=== PATIENT | male | born 1935 | race Caucasian/White ===

== ENCOUNTER → 2017-10-29 | Outpatient (REF) | payer OTHER ==
[2017-10-29 15:51] LABS: BASO # 0.1 10^3/uL (0.0-0.2); EOS # 0.3 10^3/uL (0.0-0.50); EOS % 4.3 % (0.0-3.0); HEMATOCRIT 45.6 % (42.0-52.0); HEMOGLOBIN 15.5 g/dl (13.5-17.5); IMMATURE GRANULOCYTE % 0.2 % (0-3.0); LYMPH # 1.9 10^3/uL (1.5-4.5); LYMPH % 30.8 % (24.0-44.0); MEAN CORPUSCULAR HEMOGLOBIN 31.1 pg (27.0-33.0); MEAN CORPUSCULAR VOLUME 91.4 fl (80.0-96.0); MONO # 0.4 10^3/uL (0.0-0.8); MONO % 6.4 % (0.0-5.0); NEUTROPHILS # 3.6 10^3/uL (1.8-7.7); NEUTROPHILS % 57.3 % (36.0-66.0); PLATELET COUNT, AUTOMATED 234 10^3/uL (150-450); RED BLOOD COUNT 4.99 10^6/uL (4.30-6.10); RED CELL DISTRIBUTION WIDTH 12.4 % (11.5-14.5); WHITE BLOOD COUNT 6.3 10^3/uL (4.0-10.0)
[2017-10-29 16:09] LABS: ALBUMIN 3.5 GM/DL (3.2-5.2); ALBUMIN/GLOBULIN RATIO 1.03 (1.00-1.93); ALKALINE PHOSPHATASE 70 U/L (45-117); ALT/SGPT 28 U/L (12-78); ANION GAP 8 MEQ/L (8-16); AST/SGOT 18 U/L (7-37); BILIRUBIN,TOTAL 0.6 MG/DL (0.2-1.0); BLOOD UREA NITROGEN 12 MG/DL (7-18); CALCIUM LEVEL 9.3 MG/DL (8.8-10.2); CARBON DIOXIDE LEVEL 26 MEQ/L (21-32); CHLORIDE LEVEL 109 MEQ/L (98-107); CREATININE FOR GFR 1.07 MG/DL (0.70-1.30); GLOMERULAR FILTRATION RATE > 60.0 (>35); GLUCOSE, FASTING 101 MG/DL (70-100); POTASSIUM SERUM 4.3 MEQ/L (3.5-5.1); RHEUMATOID FACTOR QUANT < 10.0 IU/ML (<15.0); SODIUM LEVEL 143 MEQ/L (136-145); TOTAL PROTEIN 6.9 GM/DL (6.4-8.2)
[2017-10-29 16:46] LABS: ERYTHROCYTE SEDIMENTATION RATE 7 mm/hr (0-20)
[2017-10-29 20:46] LABS: VITAMIN B12 LEVEL 376 PG/ML
[2017-10-29 20:47] LABS: FOLATE > 24.0 NG/ML
[2017-11-04 14:22] LABS: ANTINUCLEAR ANTIBODIES DIRECT Negative (Negative); VITAMIN B1 LEVEL WHOLE BLOOD 185.9 nmol/L (66.5-200.0); VITAMIN B6,PYRIDOXAL PHOSPHATE 32.8 ug/L (5.3-46.7); VITAMIN E(ALPHA TOCOPHEROL) 17.2 mg/L (9.0-29.0); VITAMIN E(GAMMA TOCOPHEROL) 0.3 mg/L (0.5-4.9)
== END ==
LOC: M LABNEURO 10:53
DX: R42 Dizziness and giddiness (principal)
CPT/HCPCS: 82746

== ENCOUNTER 2023-10-21 22:25 | Inpatient (IN) | payer MEDICARE ==
[~2023-10-21] VITALS: Ht 172.7 cm; Wt 82.4 kg
[~2023-10-21 22:25] MED LIST: BENI20TA11 PO; CELE20TA PO; FISHCAP PO; GLUC500T3 PO; HYDR25TA6 PO; KEPP1TAB PO; LESC80TA PO; LIDO5DIS TD; NEXI1CAP3 PO; TETR500C PO
[2023-10-22] VITALS (51 sets, daily range): BP systolic 95–129; BP diastolic 52–71; TEMP 96.2–98.7; O2SAT 92–100
[2023-10-22 00:24] LABS: BASO % 0.2 % (0.0-1.0); HEMATOCRIT 38.8 % (42.0-52.0); HEMOGLOBIN 12.7 g/dl (13.5-17.5); LYMPH # 0.6 10^3/uL (1.5-5.0); LYMPH % 4.7 % (24.0-44.0); MEAN CORPUSCULAR HEMOGLOBIN 29.3 pg (27.0-33.0); MEAN CORPUSCULAR HGB CONC 32.7 g/dl (32.0-36.5); MEAN CORPUSCULAR VOLUME 89.4 fl (80.0-96.0); MONO # 0.6 10^3/uL (0.0-0.8); NEUTROPHILS # 11.2 10^3/uL (1.5-8.5); NEUTROPHILS % 89.5 % (36.0-66.0); PLATELET COUNT, AUTOMATED 377 10^3/uL (150-450); RED BLOOD COUNT 4.34 10^6/uL (4.30-6.10); WHITE BLOOD COUNT 12.5 10^3/uL (4.0-10.0)
[2023-10-22 00:50] LABS: BLOOD UREA NITROGEN 22 MG/DL (9-23); CALCIUM LEVEL 9.3 MG/DL (8.3-10.6); CARBON DIOXIDE LEVEL 28 MMOL/L (20-31); CHLORIDE LEVEL 103 MMOL/L (98-107); CK-MB VALUE MASS 1.5 NG/ML (<3.6); CREATININE FOR GFR 1.08 MG/DL (0.70-1.30); GLOMERULAR FILTRATION RATE > 60.0 (>35); GLUCOSE, FASTING 144 MG/DL (74-106); POTASSIUM SERUM 4.7 MMOL/L (3.5-5.1); SODIUM LEVEL 134 MMOL/L (136-145)
[2023-10-22] MEDS ORDERED: ISOVUE-370 76% 100ML VIAL As Ordered ONE (00:58)
[2023-10-22 01:12] LABS: CPK CREATINE PHOSPHOKINASE 26 U/L (46-171); MB/CK RELATIVE INDEX 5.76 (< OR =4)
[2023-10-22] MEDS: IPRATROPIUM 0.5MG/ALBUTEROL 2.5MG INH SOL UD 3ML (DUONEB) NEB SCH ×2 (02:08→08:29)
[2023-10-22] MEDS: methylPREDNISolone 125MG 2ML VIAL IV ONE (02:08)
[2023-10-22 02:35] LABS: CK-MB VALUE MASS 1.6 NG/ML (<3.6); MB/CK RELATIVE INDEX 6.66 (< OR =4)
[2023-10-22 03:44] LABS: ETHYL ALCOHOL (ETHANOL) 0.004 % (0.000-0.010)
[2023-10-22 03:46] LABS: ALBUMIN 2.8 G/DL (3.2-5.2); ALKALINE PHOSPHATASE 69 U/L (46-116); ALT/SGPT 11 U/L (7.0-40); AST/SGOT 10 U/L (<34); BILIRUBIN,DIRECT 0.2 MG/DL (<0.4); BILIRUBIN,TOTAL 0.4 MG/DL (0.3-1.2); TOTAL PROTEIN 6.2 G/DL (5.7-8.2)
[2023-10-22] MEDS ORDERED: MAALOX 30 ML SUSP *UDC PO PRN (04:00)
[2023-10-22] MEDS ORDERED: MOM 30ML SUSPENSION UDC PO PRN (04:00)
[2023-10-22] MEDS ORDERED: ACETAMINOPHEN TAB 650MG DOSE (2X325MG) PO PRN (04:00)
[2023-10-22] MEDS ORDERED: LEVALBUTEROL 1.25MG 0.5ML CONCENTRATE NEB INH PRN (04:00)
[2023-10-22 04:44] LABS: THYROXINE (T4) 5.5 UG/DL (4.5-10.9)
[2023-10-22 04:45] LABS: THYROID STIMULATING HORMONE 0.609 uIU/ML (0.55-4.78)
[2023-10-22 04:49] LABS: PROCALCITONIN 0.16 ng/ml
[2023-10-22 04:50] LABS: VENOUS BASE EXCESS -5.4 (-2.0-2.0); VENOUS HCO3 18.9 MMOL/L (23.0-27.0); VENOUS PARTIAL PRESSURE O2 108.1 mmHg (30.0-50.0); VENOUS PH 7.375 UNITS (7.330-7.430); VENOUS STANDARD HCO3 20.1 MMOL/L; VENOUS TOTAL CO2 19.9 MMOL/L (24.0-28.0)
[2023-10-22 05:08] LABS: INR 1.34; PARTIAL THROMBOPLASTIN TIME 33.1 SECONDS (24.8-34.2); PROTHROMBIN TIME 16.1 SECONDS (12.5-14.5)
[2023-10-22] MEDS ORDERED: ALBU8.5H INH (06:36)
[2023-10-22] MEDS ORDERED: SERT50TA29 PO (06:36)
[2023-10-22] MEDS ORDERED: BRIV50TA PO (06:36)
[2023-10-22] MEDS ORDERED: MEMA1TAB3 PO (06:36)
[2023-10-22] MEDS ORDERED: MED REC IN PROGRESS XX SCH (06:40)
[2023-10-22] MEDS ORDERED: **NOTE PATIENT COMMENT** MISC XX SCH (07:55)
[2023-10-22] MEDS ORDERED: BRIVIACT 50 MG PO SCH (09:00)
[2023-10-22] MEDS ORDERED: CETI-24 PO (09:27)
[2023-10-22] MEDS ORDERED: MEMA1PAK PO (09:27)
[2023-10-22] MEDS ORDERED: EQ M1TAB4 PO (09:27)
[2023-10-22] MEDS ORDERED: HOME MED LIST COMPLETE! XX SCH (09:30)
[2023-10-22] MEDS: PHYTONADIONE 5 MG TAB PO ONE (11:14)
[2023-10-22] MEDS: SERTRALINE HCL 50 MG TAB PO SCH (11:15)
[2023-10-22] MEDS: MEMANTINE 5MG TABLET (NAMENDA) PO SCH (11:15)
[2023-10-22] MEDS: DOCUSATE SODIUM 100MG CAPSULE PO SCH (11:15)
[2023-10-22] MEDS: D5W/0.9% SODIUM CHLORIDE 1,000 ML IV SCH (11:44)
[2023-10-22] MEDS: LIDOCAINE 1% MDV 20ML VIAL SC STA (12:37)
[2023-10-22] MEDS: MIDAZOLAM INJ 2MG/2ML VIAL IV STA (12:37)
[2023-10-22] MEDS: flumazeniL 0.5MG/5ML VIAL IV STA (12:54)
[2023-10-22] MEDS: PHENYLEPHRINE HCL INJ 50 MG in D5W 495 ML IV SCH (12:54)
[2023-10-22] MEDS ORDERED: PERCOCET 5MG/325MG TAB PO PRN (14:10)
[2023-10-22] MEDS ORDERED: BISACODYL 10MG SUPP PR PRN (14:10)
[2023-10-22] MEDS ORDERED: ONDANSETRON 4MG 2ML VIAL IV PRN (14:10)
[2023-10-22] MEDS: UNRESOLVED PATIENT OWN MED ORDER XX SCH (14:33)
[2023-10-22] MEDS: methylPREDNISolone 125MG 2ML VIAL IV SCH (14:39)
[2023-10-22] MEDS: KETOROLAC 30 MG/ML 1ML VIAL IV SCH (14:40)
[2023-10-22 14:52] LABS: PH BODY FLUID > 7.800 UNITS (NOT ESTABLISHED); SOURCE, BODY FLUID pH PLEURAL
[2023-10-22 15:06] LABS: SOURCE, BODY FLUID ALBUMIN PLEURAL
[2023-10-22 15:11] LABS: SOURCE, BODY FLUID GLUCOSE PLEURAL
[2023-10-22 15:12] LABS: LDH, BODY FLUID 339 U/L (NOT ESTABLISHED); SOURCE, BODY FLUID LDH PLEURAL
[2023-10-22 15:13] LABS: AMYLASE, BODY FLUID < 20 U/L (NOT ESTABLISHED); CHOLESTEROL, BODY FLUID 126 MG/DL (NOT ESTABLISHED); SOURCE, BODY FLUID AMYLASE PLEURAL; SOURCE, BODY FLUID CHOL PLEURAL; SOURCE, BODY FLUID TRIG PLEURAL; TRIGLYCERIDE, BODY FLUID 68 MG/DL (NOT ESTABLISHED)
[2023-10-22 15:15] LABS: APPEARANCE, BODY FLUID TURBID (CLEAR); PLEURAL FL COLOR RED (COLORLESS); SOURCE, BODY FLUID PLEURAL
[2023-10-22 15:28] LABS: SOURCE, BODY FLUID TOT PROTEIN PLEURAL; TOTAL PROTEIN, BODY FLUID 5.2 G/DL (NOT ESTABLISHED)
[2023-10-22 16:45] LABS: RHEUMATOID FACTOR QUANT 11.3 IU/ML (<14)
[2023-10-23] VITALS (9 sets, daily range): BP systolic 94–115; BP diastolic 51–63; TEMP 97.2–98.2; O2SAT 93–99
[2023-10-23 04:41] LABS: BASO % 0.1 % (0.0-1.0); HEMATOCRIT 34.1 % (42.0-52.0); HEMOGLOBIN 11.4 g/dl (13.5-17.5); LYMPH # 0.5 10^3/uL (1.5-5.0); LYMPH % 2.8 % (24.0-44.0); MEAN CORPUSCULAR HEMOGLOBIN 29.4 pg (27.0-33.0); MEAN CORPUSCULAR HGB CONC 33.4 g/dl (32.0-36.5); MEAN CORPUSCULAR VOLUME 87.9 fl (80.0-96.0); MONO # 0.4 10^3/uL (0.0-0.8); NEUTROPHILS # 18.1 10^3/uL (1.5-8.5); NEUTROPHILS % 94.4 % (36.0-66.0); PLATELET COUNT, AUTOMATED 348 10^3/uL (150-450); RED BLOOD COUNT 3.88 10^6/uL (4.30-6.10); WHITE BLOOD COUNT 19.2 10^3/uL (4.0-10.0)
[2023-10-23 05:15] LABS: ALBUMIN 2.4 G/DL (3.2-5.2); ALKALINE PHOSPHATASE 59 U/L (46-116); ALT/SGPT < 9 U/L (7.0-40); AST/SGOT < 8 U/L (<34); BILIRUBIN,TOTAL 0.2 MG/DL (0.3-1.2); BLOOD UREA NITROGEN 28 MG/DL (9-23); CARBON DIOXIDE LEVEL 27 MMOL/L (20-31); CHLORIDE LEVEL 107 MMOL/L (98-107); CREATININE FOR GFR 0.96 MG/DL (0.70-1.30); GLOMERULAR FILTRATION RATE > 60.0 (>35); GLUCOSE, FASTING 182 MG/DL (74-106); MAGNESIUM LEVEL 1.9 MG/DL (1.8-2.4); POTASSIUM SERUM 4.4 MMOL/L (3.5-5.1); SODIUM LEVEL 138 MMOL/L (136-145); TOTAL PROTEIN 5.5 G/DL (5.7-8.2)
[2023-10-23] MEDS ORDERED: LR 1,000 ML IV SCH (07:25)
[2023-10-23] MEDS: predniSONE 20 MG TAB PO SCH (08:54)
[2023-10-23] MEDS: PANTOPRAZOLE 40MG TAB (PROTONIX) PO SCH (08:54)
[2023-10-23 10:23] LABS: INR 1.13; PROTHROMBIN TIME 14.2 SECONDS (12.5-14.5)
[2023-10-24] VITALS (9 sets, daily range): BP systolic 98–131; BP diastolic 57–73; TEMP 97.7–98.4; O2SAT 86–100
[2023-10-24 04:31] LABS: BASO % 0.1 % (0.0-1.0); HEMATOCRIT 34.4 % (42.0-52.0); HEMOGLOBIN 11.5 g/dl (13.5-17.5); LYMPH # 0.8 10^3/uL (1.5-5.0); LYMPH % 4.8 % (24.0-44.0); MEAN CORPUSCULAR HEMOGLOBIN 29.6 pg (27.0-33.0); MEAN CORPUSCULAR HGB CONC 33.4 g/dl (32.0-36.5); MEAN CORPUSCULAR VOLUME 88.7 fl (80.0-96.0); MONO # 0.7 10^3/uL (0.0-0.8); MONO % 4.3 % (2.0-8.0); NEUTROPHILS # 14.9 10^3/uL (1.5-8.5); PLATELET COUNT, AUTOMATED 351 10^3/uL (150-450); RED BLOOD COUNT 3.88 10^6/uL (4.30-6.10); WHITE BLOOD COUNT 16.5 10^3/uL (4.0-10.0)
[2023-10-24 04:55] LABS: BLOOD UREA NITROGEN 38 MG/DL (9-23); CALCIUM LEVEL 9.3 MG/DL (8.3-10.6); CARBON DIOXIDE LEVEL 26 MMOL/L (20-31); CHLORIDE LEVEL 109 MMOL/L (98-107); CREATININE FOR GFR 1.04 MG/DL (0.70-1.30); GLOMERULAR FILTRATION RATE > 60.0 (>35); GLUCOSE, FASTING 148 MG/DL (74-106); POTASSIUM SERUM 4.5 MMOL/L (3.5-5.1); SODIUM LEVEL 141 MMOL/L (136-145)
[2023-10-24 04:57] LABS: PROTEIN, TOTAL SO 5.7 g/dL (6.1-8.1)
[2023-10-24 10:47] LABS: FREE KAPPA LIGHT CHAINS SERUM 43.2 mg/L (3.3-19.4); FREE LAMBDA LIGHT CHAINS SERUM 28.3 mg/L (5.7-26.3); KAPPA/LAMBDA RATIO SERUM 1.53 (0.26-1.65)
[2023-10-24 17:07] LABS: ANA PATTERN Nuclear, Homogeneous (NEGATIVE); ANA SCREEN, IFA POSITIVE (NEGATIVE)
[2023-10-24] MEDS: COLCHICINE 0.6 MG TABLET PO SCH (20:47)
[2023-10-24] MEDS: PERCOCET 5MG/325MG TAB PO PRN (20:49)
[2023-10-25] VITALS (8 sets, daily range): BP systolic 122–131; BP diastolic 63–67; TEMP 97.5–98.2; O2SAT 81–100
[2023-10-25 04:32] LABS: HEMATOCRIT 39.2 % (42.0-52.0); HEMOGLOBIN 12.8 g/dl (13.5-17.5); MEAN CORPUSCULAR HEMOGLOBIN 29.4 pg (27.0-33.0); MEAN CORPUSCULAR HGB CONC 32.7 g/dl (32.0-36.5); MEAN CORPUSCULAR VOLUME 90.1 fl (80.0-96.0); PLATELET COUNT, AUTOMATED 425 10^3/uL (150-450); RED BLOOD COUNT 4.35 10^6/uL (4.30-6.10); WHITE BLOOD COUNT 13.8 10^3/uL (4.0-10.0)
[2023-10-25 04:33] LABS: BASO % 0.1 % (0.0-1.0); HEMATOCRIT 39.4 % (42.0-52.0); HEMOGLOBIN 12.7 g/dl (13.5-17.5); LYMPH # 1.3 10^3/uL (1.5-5.0); LYMPH % 9.2 % (24.0-44.0); MEAN CORPUSCULAR HGB CONC 32.2 g/dl (32.0-36.5); MONO # 0.7 10^3/uL (0.0-0.8); MONO % 5.1 % (2.0-8.0); NEUTROPHILS # 11.7 10^3/uL (1.5-8.5); NEUTROPHILS % 84.8 % (36.0-66.0); PLATELET COUNT, AUTOMATED 439 10^3/uL (150-450); RED BLOOD COUNT 4.38 10^6/uL (4.30-6.10); WHITE BLOOD COUNT 13.8 10^3/uL (4.0-10.0)
[2023-10-25 04:49] LABS: BLOOD UREA NITROGEN 38 MG/DL (9-23); CALCIUM LEVEL 9.6 MG/DL (8.3-10.6); CARBON DIOXIDE LEVEL 26 MMOL/L (20-31); CHLORIDE LEVEL 110 MMOL/L (98-107); CREATININE FOR GFR 0.85 MG/DL (0.70-1.30); GLOMERULAR FILTRATION RATE > 60.0 (>35); GLUCOSE, FASTING 127 MG/DL (74-106); SODIUM LEVEL 141 MMOL/L (136-145)
[2023-10-25] MEDS: levETIRAcetam INJection 1,000 MG in D5W 100 ML IV ONE (06:28)
[2023-10-25] MEDS: levETIRAcetam 250MG TABLET (KEPPRA) PO SCH (08:45)
[2023-10-25] MEDS: predniSONE 20 MG TAB PO ONE (08:46)
[2023-10-25] MEDS ORDERED: COLC0.6T47 PO (09:38)
[2023-10-25] MEDS ORDERED: PRED20TA PO (09:38)
[2023-10-26] MEDS ORDERED: predniSONE 10MG TAB PO ONE (09:00)
[2023-10-27 07:57] LABS: ALBUMIN SO 2.8 g/dL (3.8-4.8); ALPHA 1 GLOBULINS SO 0.5 g/dL (0.2-0.3); ALPHA 2 GLOBULINS SO 0.9 g/dL (0.5-0.9); BETA 2 GLOBULIN SO 0.5 g/dL (0.2-0.5); BETA GLOBULIN SO 0.3 g/dL (0.4-0.6); GAMMA GLOBULINS SO 0.7 g/dL (0.8-1.7)
== END 2023-10-25 16:19 | disposition home or self-care (01) | DRG 316 ==
LOC: M ED 22:25 → M ED INP 10-22 03:58 → M PCU 10-22 05:12 → M ICU 10-22 11:22
PROVIDERS: ADMIT Preventive Medicine Undersea and Hyperbaric Medicine; ATTEND Family Medicine
PROC: 0W9D30Z Drainage of Pericardial Cavity with Drainage Device, Percutaneous Approach (ICD-10-PCS; 2023-10-22)
PROC: B246ZZZ Ultrasonography of Right and Left Heart (ICD-10-PCS; principal; 2023-10-23)
DX: I31.39 Other pericardial effusion (noninflammatory) (principal); J44.9 Chronic obstructive pulmonary disease, unspecified; I10 Essential (primary) hypertension; E78.5 Hyperlipidemia, unspecified; F32.A Depression, unspecified; M54.9 Dorsalgia, unspecified; G89.29 Other chronic pain; K21.9 Gastro-esophageal reflux disease without esophagitis; H35.00 Unspecified background retinopathy; N40.0 Benign prostatic hyperplasia without lower urinary tract symptoms; K59.00 Constipation, unspecified; G40.909 Epilepsy, unspecified, not intractable, without status epilepticus; Z79.899 Other long term (current) drug therapy; Z88.0 Allergy status to penicillin; Z88.8 Allergy status to other drugs, medicaments and biological substances; I35.0 Nonrheumatic aortic (valve) stenosis; R26.89 Other abnormalities of gait and mobility; L93.0 Discoid lupus erythematosus